=== PATIENT | male | born 2005 | race Two or more races ===

== ENCOUNTER 2023-05-06 22:26 | Emergency (ER) | payer OTHER, MEDICAID ==
[~2023-05-06] VITALS: Ht 172.7 cm; Wt 52.6 kg
[2023-05-06] MEDS ORDERED: ACETAMINOPHEN 325 MG TAB PO ONE (22:45)
[2023-05-06 23:52] LABS: Rapid Strep A Screen-Throat Negative
[2023-05-07] MEDS ORDERED: AMOX875T4 PO (00:54)
[2023-05-07] MEDS ORDERED: PRED20TA2 PO (00:54)
[2023-05-07] MEDS ORDERED: cefTRIAXone SOD 1,000 MG VL IM ONE (01:00)
[2023-05-07] MEDS ORDERED: methylPREDNISolone SOD SUCC 125 MG/2 ML VL IM ONE (01:00)
[2023-05-07] MEDS ORDERED: ACET500T58 PO (01:11)
[2023-05-07 01:15] VITALS: BP 112/71; PULSE 84; RESP 18; O2SAT 98
[2023-05-07 01:32] VITALS: TEMP 100.3
== END 2023-05-07 01:45 | disposition home or self-care (01) ==
LOC: ER 22:26
DX: J06.9 Acute upper respiratory infection, unspecified (principal); H92.03 Otalgia, bilateral
CPT/HCPCS: 36415; 71046; 85379; 87070; 87880; 96372; 99284; J0696; J2930